=== PATIENT | male | born 1945 | race Caucasian/White ===

== ENCOUNTER 2019-08-29 18:20 | Inpatient (IN) | payer OTHER ==
[~2019-08-29] VITALS: Ht 180.3 cm; Wt 73.0 kg
[2019-08-29 18:32] VITALS: BP 125/74
--- NOTE | 2019-08-29 18:35 | NUR ---
PT NON-VERBAL UPON PLACEMENT TO BED 10
--- NOTE | 2019-08-29 18:36 | NUR ---
DNR WITH COMFORT CARE TREATMENT
--- NOTE | 2019-08-29 18:40 | NUR ---
PT ON NON-REBREATHER 15 L AT 100%
--- NOTE | 2019-08-29 18:43 | NUR ---
TABITHA FROM [facility] DUE TO ABNORMAL LABS, ELEVATED WBC AND UTI IN U/A. PER EMS, PT IS USUALLY VERBAL WITH FULL SENTENCES. PT MUMBLING AT THIS TIME. RR LABORED WITH INCREASED EFFORT. LUNGS DIMINISHED BILATERALLY. RR 33. PUPILS PERRL. PT NOW RESPONDING TO NAME AND MOVES EYES TO VERBAL COMMAND. EXTREMETIES WEAK. HR 100. PMH- AFIB, GERD, HENSLEY CATH, PVD, HTN
--- NOTE | 2019-08-29 18:48 | NUR ---
PER DR HERNANDEZ, REMOVE OXYGEN FOR ARTERIAL BLOOD GASES
--- NOTE | 2019-08-29 18:54 | NUR ---
URINE COLLECTED FROM PTS HENSLEY. COLORED DARK BROWN
--- NOTE | 2019-08-29 18:57 | NUR ---
XRAY AT BEDSIDE
--- NOTE | 2019-08-29 19:00 | NUR ---
LAB AT BEDSIDE
--- NOTE | 2019-08-29 19:14 | NUR ---
REPORT GIVEN TO PATRICIO KHAN. PENDING EKG AT THIS TIME. DR RODRIGEZ AT BEDSIDE. FAMILY AT BEDSIDE.
[2019-08-29 19:21] LABS: BASOPHILS # (AUTO) 0.2 K/uL (0.00-0.22); BASOPHILS % (AUTO) 1.2 % (0.0-2.0); EOSINOPHILS # (AUTO) 0.1 K/uL (0-0.4); EOSINOPHILS % (AUTO) 0.5 % (0.0-4.0); HEMATOCRIT 42.4 % (36-52); HEMOGLOBIN 13.7 g/dL (12.0-18.0); LYMPHOCYTES # (AUTO) 0.3 K/uL (2.0-11.5); LYMPHOCYTES % (AUTO) 1.9 % (20.5-51.1); MEAN CORPUSCULAR HEMOGLOBIN 30 pg (27-31); MEAN CORPUSCULAR HGB CONC 32 g/dL (33-37); MEAN CORPUSCULAR VOLUME 92.9 fL (80-94); MONOCYTES # (AUTO) 0.6 K/uL (0.8-1.0); MONOCYTES % (AUTO) 3.5 % (1.7-9.3); NEUTROPHILS # (AUTO) 14.9 K/uL (1.8-7.7); NEUTROPHILS % (AUTO) 92.9 % (42.2-75.2); PLATELET COUNT (AUTO) 226 K/uL (140-450); RED BLOOD CELL COUNT(AUTO) 4.56 MIL/uL (4.20-6.10); RED CELL DISTRIBUTION WIDTH 15.6 % (11.6-13.7); WHITE BLOOD COUNT (AUTO) 16.1 K/uL (4.8-10.8)
[2019-08-29] MEDS ORDERED: PIPERACILLIN/TAZOBACTAM 3.375 GM in DEXTROSE 5% 50 ML IV ONE (19:25)
[2019-08-29] MEDS ORDERED: NACL 0.9% 1,000 ML IV ONE (19:25)
[2019-08-29 19:38] LABS: BILIRUBIN,URINE 1+ (NEGATIVE); BLOOD, URINE 3+ (NEGATIVE); LEUKOCYTE ESTERASE ,URINE TRACE (NEGATIVE); NITRITE, URINE POSITIVE (NEGATIVE); PH,URINE 6.5 (5.0-9.0); UGLUCOSE NEGATIVE (NEGATIVE)
[2019-08-29] MEDS ORDERED: PIPERACILLIN/TAZOBACTAM 3.375 GM VIAL IV ONE (19:40)
[2019-08-29 19:53] LABS: PROTHROMBIN TIME 11.6 secs (10.8-13.4)
[2019-08-29 19:55] LABS: APPEARANCE,URINE BLOODY (CLEAR); COLOR,URINE BROWN (YELLOW)
[2019-08-29 19:58] LABS: ALBUMIN 2.8 g/dL (3.4-5.0); ANION GAP 13.8 (8-16); ASPARTATE AMINOTRANSFERASE 55 U/L (15-37); CARBON DIOXIDE 29.3 mmol/L (21-32); CHLORIDE 103 mmol/L (98-107); CREATININE 1.1 mg/dL (0.7-1.3); GLUCOSE 125 mg/dL (74-106); POTASSIUM 4.1 mmol/L (3.5-5.1); SODIUM SERUM 142 mmol/L (136-145); UREA NITROGEN, BLOOD 19 mg/dL (7-18)
[2019-08-29 20:00] LABS: RBC,URINE TOO NUMEROUS TO COUN /HPF (0-5); WBC,URINE 0-5 /HPF (0-5)
[2019-08-29] MEDS: DEXT 5% / NACL 0.45% 1,000 ML IV SCH ×2 (21:40→23:40)
[2019-08-29] MEDS ORDERED: METO100T23 PO (21:41)
[2019-08-29] MEDS ORDERED: OMEP20TC12 PO (21:42)
[2019-08-29] MEDS ORDERED: ONDANSETRON 4 MG/2 ML VIAL IVP PRN (21:50)
[2019-08-29] MEDS ORDERED: ACETAMINOPHEN 325 MG TAB PO PRN (21:50)
[2019-08-29] MEDS ORDERED: HYDROcodone/APAP 7.5/325 MG 1 TAB PO PRN (21:50)
[2019-08-29] MEDS ORDERED: UMEC1POW IH (21:56)
[2019-08-29] MEDS ORDERED: FINA5TAB1 PO (21:56)
[2019-08-29] MEDS ORDERED: DIGO0.122 PO (21:57)
[2019-08-29] MEDS ORDERED: TRAZ-343 PO (21:58)
[2019-08-29] MEDS ORDERED: FOLI1TAB90 PO (21:58)
[2019-08-29] MEDS ORDERED: TAMS0.4C97 PO (21:59)
--- NOTE | 2019-08-29 22:31 | NUR ---
EMPTIED HENSLEY CATH, 350 ML DARK HEMATURIA COLLECTED.
--- NOTE | 2019-08-29 22:40 | NUR ---
RECEIVED REPORT FROM ED RN PATRICIO FOR PT'S CONTINUITY OF CARE. PT AAOX2, FAMILY MEMBERS AT BEDSIDE, IS ON 2L O2 VIA NC, ON CERTIFIED DRUG COUNSELOR, HAS LEFT FA 20G SALINE LOCK, DENIES ANY PAIN AT THIS TIME. PT MADE COMFORTABLE, EXPLAINED TO PT AND FAMILY MEMBERS THE EXTRUSION PRESS ADJUSTER ROUTINE AND THE PLAN OF CARE, THEY VERBALIZED UNDERSTANDING. SAFETY AND ASPIRATION PRECAUTIONS IN PLACE. WILL MONITOR PT THROUGHOUT SHIFT.
--- NOTE | 2019-08-29 22:40 | NUR ---
PT ADMITTED TO [facility] RM 107A. TRANSFERRED VIA [facility] STABLE CONDITION. REPORT GIVEN TO DARBY KHAN. TRANSFER OF CARE AT THIS TIME.
[2019-08-29 22:43] LABS: MAGNESIUM 1.4 mg/dL (1.8-2.4); PHOSPHORUS 3.7 mg/dL (2.5-4.9); THYROID STIMULATING HORMONE 2.63 uIU/mL (0.34-3.74)
[2019-08-29 23:15] VITALS: BP 103/65
--- NOTE | 2019-08-29 23:40 | NUR ---
ADMINISTERED SCHEDULED IVF ORDERED. ANSWERED FAMILY MEMBERS QUESTIONS. WILL CONTINUE TO MONITOR PT.
[2019-08-30] VITALS: BP 129/66
[2019-08-30] MEDS ORDERED: PIPERACILLIN/TAZOBACTAM 3.375 GM VIAL IV ONE ×2 (00:27→05:52)
--- NOTE | 2019-08-30 00:30 | NUR ---
PT CHANGED AND MADE COMFORTABLE. ADMINISTERED SCHEDULED IV ABX ORDERED. PT DENIES ANY PAIN. WILL CONTINUE TO MONITOR PT.
[2019-08-30] MEDS ORDERED: PIPERACILLIN/TAZOBACTAM 3.375 GM in DEXTROSE 5% 50 ML IV SCH (01:00)
--- NOTE | 2019-08-30 01:30 | NUR ---
EXISTING SHELLIE KOO DC'D. PT C/O PAIN. PT CALLED TO INQUIRE ABOUT PT. INFORMATION GIVEN TO . NOTIFIED MD OF PAIN, WILL ORDER IVP PAIN MEDICATION.
[2019-08-30] MEDS: MORPHINE SULFATE 2 MG/ML SYR IVP PRN (01:44)
--- NOTE | 2019-08-30 01:46 | NUR ---
ADMINISTERED IVP PAIN MEDICATION ORDERED. UPON REMOVING HENSLEY CATH, PT C/O SEVERE PAIN. INFORMED MD AND MD ORDERED IVP PAIN MEDICATION. WILL REINSERT NEW HENSLEY CATHETER.
--- NOTE | 2019-08-30 02:30 | NUR ---
INSERTED NEW HENSLEY CATHETER, PT TOLERATED IT FAIRLY. MADE PT COMFORTABLE. WILL CONTINUE TO MONITOR PT.
[2019-08-30] MEDS ORDERED: ALBUTEROL SULFATE/IPRATROPIU 3 ML SOL IH PRN (03:15)
[2019-08-30] MEDS ORDERED: APIX5TAB PO (03:21)
[2019-08-30 04:00] VITALS: BP 129/66
[2019-08-30] MEDS ORDERED: MAG SULF 2000 MG/WATER PREMIX 50 ML IV SCH (05:00)
--- NOTE | 2019-08-30 05:00 | NUR ---
VS CHECKED AND CHARTED. ADMINISTERED SCHEDULED IV MAGNESIUM ORDERED. PT ASLEEP WITH NO SIGNS OF DISTRESS. PT CONTINUES TO SAT AT 96% WITH 2 L O2 VIA NC.
[2019-08-30] MEDS: PANTOPRAZOLE 40 MG TABEC PO SCH (05:57)
--- NOTE | 2019-08-30 06:20 | NUR ---
NEW IV INSERT PER RADIOLOGY'S PREFERENCE FOR PT'S CT SCAN WITH CONTRAST. CONSENT PRINTED AND WILL ENDORSE TO AM SHIFT RN THAT WILL BE THE TECHNICAL ADMINISTRATOR TO SIGN FOR CT WITH CONTRAST CONSENT SINCE PT IS ALOC. PT DENIES ANY PAIN AT THIS TIME. ADMINISTERED SCHEDULED IV ABX ORDERED. URINE CLEAR AND YELLOW IN COLOR COMPARE TO LAST NIGHT'S OUTPUT. WILL ENDORSE TO AM SHIFT RN FOR PT'S CONTINUITY OF CARE.
[2019-08-30] MEDS: PIPERACILLIN/TAZOBACTAM 3.375 GM in DEXTROSE 5% 50 ML IV SCH ×3 (06:27→18:18)
[2019-08-30 06:28] LABS: BASOPHILS % (AUTO) 0.4 % (0.0-2.0); EOSINOPHILS # (AUTO) 0.3 K/uL (0-0.4); EOSINOPHILS % (AUTO) 2.7 % (0.0-4.0); HEMATOCRIT 37.8 % (36-52); HEMOGLOBIN 12.3 g/dL (12.0-18.0); LYMPHOCYTES # (AUTO) 0.7 K/uL (2.0-11.5); MEAN CORPUSCULAR HEMOGLOBIN 30 pg (27-31); MEAN CORPUSCULAR HGB CONC 33 g/dL (33-37); MEAN CORPUSCULAR VOLUME 92.9 fL (80-94); MONOCYTES # (AUTO) 0.7 K/uL (0.8-1.0); NEUTROPHILS % (AUTO) 82.9 % (42.2-75.2); PLATELET COUNT (AUTO) 185 K/uL (140-450); RED BLOOD CELL COUNT(AUTO) 4.07 MIL/uL (4.20-6.10); RED CELL DISTRIBUTION WIDTH 15.3 % (11.6-13.7); WHITE BLOOD COUNT (AUTO) 9.6 K/uL (4.8-10.8)
[2019-08-30 07:10] LABS: CARBON DIOXIDE 33.2 mmol/L (21-32); CHLORIDE 105 mmol/L (98-107); GLUCOSE 108 mg/dL (74-106); POTASSIUM 3.2 mmol/L (3.5-5.1); SODIUM SERUM 142 mmol/L (136-145); UREA NITROGEN, BLOOD 17 mg/dL (7-18)
--- NOTE | 2019-08-30 07:10 | NUR ---
RECEIVED REPORT FROM NIGHT NURSE, PT IS STABLE IN BED, ON 2L NC O2, PT IS RESTING IN BED, SAFETY MEASURES IN PLACE, CALL LIGHT WITHIN REACH,
[2019-08-30 07:15] LABS: MAGNESIUM 1.2 mg/dL (1.8-2.4)
[2019-08-30 07:17] LABS: CHOL/HDL RATIO 2.7 (1-4.5)
[2019-08-30] MEDS: DEXT 5% / NACL 0.45% 1,000 ML IV SCH ×2 (07:49→17:49)
[2019-08-30 08:00] VITALS: BP 108/69
[2019-08-30] MEDS ORDERED: APIXABAN 2.5 MG TAB PO SCH ×2 (09:00→21:00)
[2019-08-30] MEDS: ALBUTEROL SULFATE/IPRATROPIU 3 ML SOL IH SCH ×3 (09:00→19:31)
--- NOTE | 2019-08-30 09:10 | NUR ---
PATIENT IS SCREENED AND CATEGORIZED HIGH NUTRITION RISK. PATIENT WILL BE SEEN WITHIN 1-2 DAY OF ADMISSION. 08/30/2019-08/31/[address]
[2019-08-30] MEDS ORDERED: METOPROLOL 25 MG TAB PO SCH (09:36)
[2019-08-30] MEDS: DOCUSATE SODIUM 100 MG GELCAP PO SCH ×2 (09:47→21:00)
[2019-08-30] MEDS: TAMSULOSIN 0.4 MG CAP PO SCH (09:49)
[2019-08-30] MEDS: FINASTERIDE 5 MG TAB PO SCH (09:50)
[2019-08-30] MEDS: FAMOTIDINE 20 MG TAB PO SCH (09:50)
[2019-08-30] MEDS: DIGOXIN 0.125 MG TAB PO SCH (09:50)
--- NOTE | 2019-08-30 11:17 | NUR ---
GAVE PT ZOFRAN FOR NAUSEA. RT REPORTED PT VOMITED DUE TO HIS COUGHING. GAVE PT EDUCATION, PT TOLERATED MEDICATION WELL, PT IS STILL COUGHING, AT BEDSIDE. CALL LIGHT WITHIN REACH.
[2019-08-30 12:00] VITALS: BP 107/70
[2019-08-30] MEDS: KCL 20 MEQ/WATER INJ PREMIX 200 ML IV SCH ×2 (15:30→17:35)
--- NOTE | 2019-08-30 15:50 | NUR ---
PT BEDSIDE SWALLOW EVALUATION DONE, PT CAN TOLERATE PUREED DIET AND THICKEN LIQUIDS
[2019-08-30 16:00] VITALS: BP 86/59
--- NOTE | 2019-08-30 16:10 | NUR ---
GAVE DR FIGUEROA REPORT PT BP 86/59, RECEIVED ORDERED AND WILL CARRY THEM OUT.
[2019-08-30] MEDS ORDERED: NACL 0.9% 1,000 ML IV SCH (16:30)
--- NOTE | 2019-08-30 16:30 | NUR ---
GAVE PT A BOLUS OF NORMAL SALINE, PER MD ORDER,
--- NOTE | 2019-08-30 17:30 | NUR ---
AFTER BOLUS, PT BP 133/75, HR 89, PT IS STABLE, FAMILY AT BEDSIDE.
[2019-08-30] MEDS: MAG SULF 2000 MG/WATER PREMIX 100 ML IV SCH ×2 (18:19→21:00)
--- NOTE | 2019-08-30 19:10 | NUR ---
GAVE REPORT TO NIGHT NURSE FOR CONTINUITY OF CARE, PT IS STABLE.
[2019-08-30] MEDS: BUDESONIDE 0.5 MG/2 ML NEBU INH SCH (19:32)
--- NOTE | 2019-08-30 19:50 | NUR ---
RECEIVED PT ON 2L NC WITH AN SP02 OF 95% AND RALES BREATH SOUNDS. NO RESPIRATORY DISTRESS NOTED AT THIS TIME; HR 91 AND RR 20. HHN TX GIVEN ORDERED WITH NO ADVERSE REACTION. FAMILY MEMBERS AT BEDSIDE DURING TX. WILL CONTINUE TO MONITOR PT.
[2019-08-30 20:00] VITALS: BP 114/60
[2019-08-30] MEDS: METOPROLOL 25 MG TAB PO SCH (21:00)
[2019-08-30] MEDS: APIXABAN 2.5 MG TAB PO SCH (21:00)
[2019-08-30] MEDS ORDERED: traZODone 50 MG TAB PO SCH (21:00)
--- NOTE | 2019-08-30 21:00 | NUR ---
PERFORMED SWALLOW TEST, PT UNABLE TO SWALLOW. MEDICATIONS NOT GIVEN, MD AWARE.
--- NOTE | 2019-08-30 21:00 | NUR ---
Texted Favian RN PICC for PICC insertion nolan ; waited for Favian to text back
[2019-08-30] MEDS ORDERED: CRUSHER, PILL MC ONE (21:41)
--- NOTE | 2019-08-30 23:15 | NUR ---
PT LYING DOWN SHAKING, ASKED PT IF HE IS OK AND WHY HE IS SHAKING, PRE PT, "HE SOMETIMES GET LIKE THIS". DENIES PAIN OR DISCOMFORT OTHERWISE. MADE PT COMFORTABLE. WILL CONTINUE TO MONITOR PT.
[2019-08-31] VITALS: BP 121/73
[2019-08-31] MEDS: PIPERACILLIN/TAZOBACTAM 3.375 GM in DEXTROSE 5% 50 ML IV SCH ×4 (00:16→18:03)
--- NOTE | 2019-08-31 00:16 | NUR ---
ADMINISTERED SCHEDULED IV ABX ORDERED. PT ASLEEP, SHAKING A LITTLE BIT, COVERED UP WITH BLANKET AND REMINDED TO RELAX AND TAKE DEEP BREATHS. SHAKING STOPPED AND MADE PT COMFORTABLE. WILL CONTINUE TO MONITOR PT.
[2019-08-31] MEDS: DEXT 5% / NACL 0.45% 1,000 ML IV SCH ×2 (00:25→11:26)
--- NOTE | 2019-08-31 02:00 | NUR ---
PT LYING DOWN ASLEEP WITH NO SIGNS OF DISTRESS. PICC LINE RN PARVIN CALLED TO VERIFY ORDER FOR PICC LINE, WILL DO THE PROCEDURE IN THE A.M. INFORMED RADIOLOGY AND ANVIL WORKER AWARE.
[2019-08-31 04:00] VITALS: BP 136/96
--- NOTE | 2019-08-31 05:01 | NUR ---
Called [facility] , lm
--- NOTE | 2019-08-31 05:25 | NUR ---
ADMINISTERED SCHEDULED IV ABX ORDERED. PT SHAKING HIS LEGS, HR GOING UP. REASSESSED PT, PT DENIED ANY PAIN BY SHAKING HIS HEAD. MADE PT COMFORTABLE, REORIENTED PT TO HOSPITAL ENVIRONMENT. WILL CONTINUE TO MONITOR PT.
[2019-08-31] MEDS: PANTOPRAZOLE 40 MG TABEC PO SCH (05:34)
[2019-08-31 05:45] LABS: BASOPHILS % (AUTO) 0.3 % (0.0-2.0); EOSINOPHILS # (AUTO) 0.2 K/uL (0-0.4); EOSINOPHILS % (AUTO) 1.9 % (0.0-4.0); HEMATOCRIT 35.5 % (36-52); HEMOGLOBIN 11.5 g/dL (12.0-18.0); LYMPHOCYTES # (AUTO) 0.4 K/uL (2.0-11.5); LYMPHOCYTES % (AUTO) 3.8 % (20.5-51.1); MEAN CORPUSCULAR HEMOGLOBIN 30 pg (27-31); MEAN CORPUSCULAR HGB CONC 32 g/dL (33-37); MEAN CORPUSCULAR VOLUME 92.9 fL (80-94); MONOCYTES # (AUTO) 0.7 K/uL (0.8-1.0); MONOCYTES % (AUTO) 6.7 % (1.7-9.3); NEUTROPHILS # (AUTO) 8.6 K/uL (1.8-7.7); NEUTROPHILS % (AUTO) 87.3 % (42.2-75.2); PLATELET COUNT (AUTO) 181 K/uL (140-450); RED BLOOD CELL COUNT(AUTO) 3.82 MIL/uL (4.20-6.10); RED CELL DISTRIBUTION WIDTH 15.3 % (11.6-13.7); WHITE BLOOD COUNT (AUTO) 9.9 K/uL (4.8-10.8)
[2019-08-31 06:04] LABS: ANION GAP 6.9 (8-16); CARBON DIOXIDE 32.7 mmol/L (21-32); CHLORIDE 100 mmol/L (98-107); CREATININE 0.8 mg/dL (0.7-1.3); GLUCOSE 145 mg/dL (74-106); POTASSIUM 3.6 mmol/L (3.5-5.1); SODIUM SERUM 136 mmol/L (136-145); UREA NITROGEN, BLOOD 9 mg/dL (7-18)
[2019-08-31 06:11] LABS: MAGNESIUM 1.8 mg/dL (1.8-2.4); PHOSPHORUS 2.7 mg/dL (2.5-4.9)
--- NOTE | 2019-08-31 06:30 | NUR ---
PT GRUNTING, MADE PT COMFORTABLE. REORIENTED TO HOSPITAL ENVIRONMENT, PT NODDED. PT STABLE AND COMFORTABLE. WILL ENDORSE PT TO AM SHIFT RN.
--- NOTE | 2019-08-31 07:05 | NUR ---
RECEIVED REPORT FROM NIGHT NURSE, PT IS LAYING IN BED, INTERMITTENT COUGHING, PT HAS LEFT FOREARM 20G, RAC 20G RUNNING D51/2NS AT 100 ML/H. PT ON 2L NASAL CANNULA, SAFETY MEASURES IN PLACE
[2019-08-31] MEDS: BUDESONIDE 0.5 MG/2 ML NEBU INH SCH ×2 (07:06→19:30)
[2019-08-31] MEDS: ALBUTEROL SULFATE/IPRATROPIU 3 ML SOL IH SCH ×3 (07:06→19:30)
[2019-08-31 08:00] VITALS: BP 139/72
[2019-08-31] MEDS: DOCUSATE SODIUM 100 MG GELCAP PO SCH ×2 (09:00→21:00)
[2019-08-31] MEDS: FAMOTIDINE 20 MG TAB PO SCH (09:00)
[2019-08-31] MEDS: TAMSULOSIN 0.4 MG CAP PO SCH (09:00)
[2019-08-31] MEDS: METOPROLOL 25 MG TAB PO SCH (09:00)
[2019-08-31] MEDS: FINASTERIDE 5 MG TAB PO SCH (09:00)
[2019-08-31] MEDS: APIXABAN 2.5 MG TAB PO SCH ×2 (09:00→21:00)
[2019-08-31] MEDS: DIGOXIN 0.125 MG TAB PO SCH (09:00)
--- NOTE | 2019-08-31 09:53 | NUR ---
(08/31/19) RD INITIAL ASSESSMENT COMPLETED PLEASE REFER TO NUTRITION ASSESSMENT UNDER CARE ACTIVITY FOR ESTIMATED NUTRITIONAL NEEDS. RD RECOMMENDATIONS: 1. CONTINUE ON PUREE/NECTAR-THICK LIQUIDS TOLERATED. 2. IF PO INTAKES < 50%, CONSIDER ADDING ENSURE ENLIVE 1 CARTON WITH MEALS TID TO PROVIDE ADDITIONAL 1050 KCAL AND [address] WILL F/U 3-5 DAYS; MODERATE RISK. GABINO RUIZ MS, RDN
--- NOTE | 2019-08-31 10:08 | NUR ---
PT TOO LETHARGIC TO SWALLOW MEDICATION, DR FIGUEROA IS AWARE.
[2019-08-31] MEDS: MORPHINE SULFATE 2 MG/ML SYR IVP PRN ×2 (10:57→16:07)
--- NOTE | 2019-08-31 10:57 | NUR ---
GAVE PT MORPHINE FOR FLACC 5, PT IS RESTLESS, INDICATES HE IS IN PAIN BUT UNABLE TO VERBALIZE NUMBER. REMOVED RIGHT AC IV, IV INTACT, REMOVED LEFT HAND IV, IV INTACT. FAMILY AT BEDSIDE.
[2019-08-31 12:00] VITALS: BP 147/80
--- NOTE | 2019-08-31 12:00 | NUR ---
NOTIFY DR FIGUEROA, PT HEART RATE IS 156 ON TELEMONITOR, BP 147/80. RECEIVED ORDERS AND WILL CARRY THEM OUT
[2019-08-31] MEDS ORDERED: LORazepam 2 MG/ML VIAL IVP PRN (13:10)
[2019-08-31] MEDS ORDERED: SCOPOLAMINE 1.5 MG/72 HR PATCH TD SCH (13:10)
[2019-08-31] MEDS: METOPROLOL 5 MG/5 ML VIAL IV SCH ×3 (13:14→21:00)
--- NOTE | 2019-08-31 13:21 | NUR ---
GAVE ORDERED METOPROLOL IV PUSH, PER MD ORDERED, EDUCATION GIVEN, FAMILY AT BESIDE.
--- NOTE | 2019-08-31 15:05 | NUR ---
PT IN BED ON 2L NC, FAMILY AT BEDSIDE,
[2019-08-31 16:00] VITALS: BP 140/83
--- NOTE | 2019-08-31 16:11 | NUR ---
GAVE PT MORPHINE FOR FLACC 5, PT TOLERATED WELL, FAMILY AT BEDSIDE.
--- NOTE | 2019-08-31 16:11 | NUR ---
DISCHARGE PLANNING: A 73 YEAR OLD MALE FROM [facility], WHO CAME IN DUE TO ALTERED, WEAK AND GETTING WORSE. PAST MEDICAL HISTORY INCLUDE METASTATIC LUNG CA, OBSTRUCTIVE NEUROPATHY, BPH, PAD, A FIB. INITIAL DIAGNOSIS OF PNA AND URINARY TRACT INFECTION. CURRENT LABS INCLUDE WBC 9.9, H/H 11.5/35.5. 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 PULMO CONSULT WITH DR. KITCHEN FOR METASTATIC LUNG CA. DC PLAN IS TO GO BACK TO [facility] ONCE STABLE. Addendum: 09/01/19 at 1415 by Lisa Kessler DC PLANNING: SEEN BY PULMO DR RONAN FREEMAN, HOSPICE EVALUATION CONTINUE IV ABX AND BREATHING TREATMENT. CONTACTED [facility] WILL SEND SOMEONE TO TALK TO PATIENT AND FAMILY MEMBER.
--- NOTE | 2019-08-31 19:20 | NUR ---
GAVE REPORT TO NIGHT NURSE FOR CONTINUITY OF CARE, PT HAS LABORED BREATHING, MD AWARE, CALLED RT FOR BREATHING TREATMENT AND SUCTIONING, FAMILY AT BEDSIDE.
--- NOTE | 2019-08-31 19:22 | NUR ---
RECEIVED PT ON BED, SLEEPING, UNAROUSABLE AT THIS TIME, FLACC-0, NO SIGNS OF PAIN, LABORED BREATHING AND TACHYPNEIC, SAT-93% ON O2 2L NC, RT COMING TO GIVE BREATHING TX, IVF INFUSING WELL VIA RT UA PICC LINE, FAMILY MEMBERS AT BEDSIDE, PER JAVED PT HAS BEEN DIFFICULT TO AROUSE SINCE THIS AFTERNOON, HENSLEY CATHETER TO GRAVITY DRAINING YELLOW URINE, PLAN OF CARE DISCUSSED WITH FAMILY, DNR STATUS, SAFETY MEASURES IN PLACE, WILL CLOSELY MONITOR PT.
[2019-08-31 20:00] VITALS: BP 152/84
--- NOTE | 2019-08-31 21:23 | NUR ---
PT NON-RESPONSIVE, NO RESPONSE FROM PAINFUL STIMULI, VITAL SIGNS TAKEN:BP-121/66, HR-117, RR-36, SAT-93%, TEMP-97.4, FLACC-0, PT APPEARS COMFORTABLE, UNABLE TO GIVE DUE PO MEDS, DR SMITH MADE AWARE OF PT'S CONDITION, DR SMITH CALLED PT'S JAVED AND UPDATED ON PT'S CONDITION, DISCUSS TREATMENT PLAN, DR STATED TO CONTINUE MONITORING PT AND KEEP PT COMFORTABLE AND NOTIFY IF THERE IS CHANGE ON PT'S CONDITION.
--- NOTE | 2019-08-31 23:30 | NUR ---
PT STILL NON-RESPONSIVE, VITAL SIGNS TAKEN, CONTROLLED A-FIB WITH 111 BPM, SAT-96% ON O2 2L NC, TACHYPNEIC WITH RR-32, FLACC-0, IVF INFUSING WELL, NO SIGNS OF DISTRESS, CONTINUE TO MONITOR CLOSELY.
[2019-09-01] VITALS: BP 129/67
--- NOTE | 2019-09-01 00:20 | NUR ---
PT'S JAVED CALLED AND UPDATED ON PT'S CONDITION, STATED THEY WILL DISCUSS AND DECIDE IN THE MORNING REGARDING HOSPICE CARE FOR PT, WILL ENDORSE.
[2019-09-01] MEDS: PIPERACILLIN/TAZOBACTAM 3.375 GM in DEXTROSE 5% 50 ML IV SCH ×4 (00:30→18:08)
--- NOTE | 2019-09-01 01:40 | NUR ---
NOTICED PT HAD OCCASIONAL SILVER LEG TREMBLING, LAST FOR SEVERAL SECONDS, PT STILL NON-RESPONSIVE TO CHEST RUB AND PAIN, MONITORED CLOSELY.
[2019-09-01 04:00] VITALS: BP 129/66
[2019-09-01] MEDS: DEXT 5% / NACL 0.45% 1,000 ML IV SCH ×2 (04:55→22:51)
--- NOTE | 2019-09-01 05:48 | NUR ---
PT UNABLE TO TAKE DUE ORAL MEDICATION, PT STILL NON-RESPONSIVE, IVF D5 1/2 NS @70ML/H INFUSING WELL, MONITORED CLOSELY.
[2019-09-01] MEDS: PANTOPRAZOLE 40 MG TABEC PO SCH (05:50)
[2019-09-01 06:15] LABS: BASOPHILS % (AUTO) 0.2 % (0.0-2.0); EOSINOPHILS # (AUTO) 0.2 K/uL (0-0.4); EOSINOPHILS % (AUTO) 1.5 % (0.0-4.0); HEMATOCRIT 34.3 % (36-52); HEMOGLOBIN 11.1 g/dL (12.0-18.0); LYMPHOCYTES # (AUTO) 0.4 K/uL (2.0-11.5); LYMPHOCYTES % (AUTO) 3.6 % (20.5-51.1); MEAN CORPUSCULAR HEMOGLOBIN 30 pg (27-31); MEAN CORPUSCULAR HGB CONC 32 g/dL (33-37); MEAN CORPUSCULAR VOLUME 91.8 fL (80-94); MONOCYTES % (AUTO) 8.6 % (1.7-9.3); NEUTROPHILS # (AUTO) 9.9 K/uL (1.8-7.7); NEUTROPHILS % (AUTO) 86.1 % (42.2-75.2); PLATELET COUNT (AUTO) 190 K/uL (140-450); RED BLOOD CELL COUNT(AUTO) 3.74 MIL/uL (4.20-6.10); RED CELL DISTRIBUTION WIDTH 14.8 % (11.6-13.7); WHITE BLOOD COUNT (AUTO) 11.5 K/uL (4.8-10.8)
[2019-09-01 06:39] LABS: ANION GAP 4.1 (8-16); CARBON DIOXIDE 34.8 mmol/L (21-32); CHLORIDE 96 mmol/L (98-107); CREATININE 0.8 mg/dL (0.7-1.3); GLUCOSE 118 mg/dL (74-106); POTASSIUM 3.9 mmol/L (3.5-5.1); SODIUM SERUM 131 mmol/L (136-145); UREA NITROGEN, BLOOD 7 mg/dL (7-18)
[2019-09-01 06:49] LABS: MAGNESIUM 1.3 mg/dL (1.8-2.4); PHOSPHORUS 2.9 mg/dL (2.5-4.9)
--- NOTE | 2019-09-01 07:24 | NUR ---
PT STILL NON-RESPONSIVE, BEDSIDE REPORT GIVEN TO RN JANNETTE FOR CONTINUITY OF CARE.
--- NOTE | 2019-09-01 07:25 | NUR ---
RECEIVED BEDSIDE REPORT FROM MECHANIST NURSE FOR CONTINUITY OF CARE. PT IS RESTING ON BED AND UNAROUSABLE AT THIS TIME. PT IS AAOX 0 AND NOT RESPOND TO VOICE. RESPIRATION EVEN AND LABORED ON 2LMP VIA NC, SPO2 AT 93%. FLACC 0. NO SIGNS OF DISTRESS NOTED. R UPPER ARM PICC IN PLACE, CLEAN AND INTACT, INFUSING PER MD ORDER. SKIN CLEAN AND DRY. PT IS INCONTINENT AND HENSLEY IN PLACE DRAINING YELLOW URINE WITH GRAVITY. TELE MONITOR ATTACHED. SAFETY MEASURES IN PLACE. BED IN LOW POSITION AND CALL LIGHT WITHIN REACH. FALL RISK PROTOCOL IN PLACE AND BED ALARM ACTIVATED.
[2019-09-01] MEDS: ALBUTEROL SULFATE/IPRATROPIU 3 ML SOL IH SCH ×3 (07:34→18:59)
[2019-09-01] MEDS: BUDESONIDE 0.5 MG/2 ML NEBU INH SCH ×2 (07:35→18:59)
[2019-09-01 08:00] VITALS: BP 145/67
[2019-09-01] MEDS: DOCUSATE SODIUM 100 MG GELCAP PO SCH ×2 (09:00→21:00)
[2019-09-01] MEDS: TAMSULOSIN 0.4 MG CAP PO SCH (09:00)
[2019-09-01] MEDS: FINASTERIDE 5 MG TAB PO SCH (09:00)
[2019-09-01] MEDS: DIGOXIN 0.125 MG TAB PO SCH (09:00)
[2019-09-01] MEDS: FAMOTIDINE 20 MG TAB PO SCH (09:00)
[2019-09-01] MEDS: APIXABAN 2.5 MG TAB PO SCH ×2 (09:00→21:00)
[2019-09-01] MEDS: METOPROLOL 5 MG/5 ML VIAL IV SCH ×4 (09:54→21:00)
--- NOTE | 2019-09-01 09:54 | NUR ---
CHECKED BLOOD PRESSURE PIROR TO MED ADMINISTRATION, BP 124/69 PULSE 121, SPO2 95% ON 2LPM VIA NC. UNABLE TO ADMINISTER PO MEDS DUE TO PT IS NOT AROUSABLE AND NON-RESPONSIVE AND FOR ASPIRATION PRECAUTION, NOTIFIED DR FIGUEROA AND DR WAS AWARE AND SAID "GIVE HIM HIS METOPROLOL." ADMINISTERED METOPROLOL VIA IVP, PT TOLERATED WELL, MED ED PROVIDED TO PT AND SISTER BY BEDSIDE. FLACC 0. NO SIGNS OF DISTRESS NOTED. TELE MONITOR ATTACHED. SAFETY MEASURES IN PLACE. BED IN LOW POSITION AND CALL LIGHT WITHIN REACH. FALL RISK PROTOCOL IN PLACE AND BED ALARM ACTIVATED.
--- NOTE | 2019-09-01 10:24 | NUR ---
DR FIGUEROA IS TALKING TO PT'S JAVED AND FAMILY AT BEDSIDE.
--- NOTE | 2019-09-01 11:01 | NUR ---
REASSESSED PT'S BP; 128/74 PULSE 100. SPO2 95% ON 2LPM VIA NC. FLACC 0. FAMILY BY BEDSIDE. NO SIGNS OF DISTRESS NOTED. TELE MONITOR ATTACHED. SAFETY MEASURES IN PLACE. BED IN LOW POSITION AND CALL LIGHT WITHIN REACH. FALL RISK PROTOCOL IN PLACE AND BED ALARM ACTIVATED.
--- NOTE | 2019-09-01 11:55 | NUR ---
ADMINISTERED ANTIBIOTIC VIA IVPB PER MD ORDER, MED ED PROVIDED TO PT AND AT BEDSIDE. PT TOLERATED WELL. RESPIRATION LABORED AND DEEP ON 2LPM VIA NC, SPO2 95%. FLACC 0. NO SIGNS OF DISTRESS NOTED. TELE MONITOR ATTACHED. SAFETY MEASURES IN PLACE. BED IN LOW POSITION AND CALL LIGHT WITHIN REACH. BED ALARM ACTIVATED.
[2019-09-01 12:00] VITALS: BP 128/82
--- NOTE | 2019-09-01 12:08 | NUR ---
ADMINISTERED ZOSYN VIA IVPB PER MD ORDER, MED ED PROVIDED TO PT AND PT VERBALIZED. CHECKED BLOOD GLUCOSE AND RECEIVED 73, NO COVERAGE NEEDED. PT AWAKE AND EATING VEGGIE CHIPS AT THIS TIME. NO SIGNS OF DISTRESS NOTED TELE MONITOR ATTACHED, SAFETY MEASURES IN PLACE. Addendum: 09/01/19 at 1212 by Dede Granados RN WRONG PT
[2019-09-01] MEDS: MAG SULF 2000 MG/WATER PREMIX 100 ML IV SCH ×2 (12:33→14:29)
[2019-09-01] MEDS: MORPHINE SULFATE 2 MG/ML SYR IVP PRN ×2 (12:36→16:34)
--- NOTE | 2019-09-01 12:36 | NUR ---
ADMINISTERED MAG PER MD ORDER FOR LOW MAG LAB 1.3. PT IS SHAKING HIS LEGS AND PULSE WENT UP TO 130, SAID" I THINK HE IS IN PAIN." ADMINISTERED PRN MORPHINE PER MD ORDER, MED ED PROVIDED TO AT BEDSIDE. PT'S PULSE WENT DOWN 109 AFTER MORPHINE. SPO2 AT 94% WITH 2LPM VIA NC. TELE MONITOR ATTACHED. SAFETY MEASURES IN PLACE.
--- NOTE | 2019-09-01 13:14 | NUR ---
CHECKED BLOOD PRESSURE PIROR TO MED ADMINISTRATION, BP 126/80 PULSE 125, SPO2 95% ON 2LPM VIA NC. ADMINISTERED METOPROLOL VIA IVP, PT TOLERATED WELL, MED ED PROVIDED TO PT AND BY BEDSIDE. FLACC 0. NO SIGNS OF DISTRESS NOTED. TELE MONITOR ATTACHED. SAFETY MEASURES IN PLACE. BED IN LOW POSITION AND CALL LIGHT WITHIN REACH. FALL RISK PROTOCOL IN PLACE AND BED ALARM ACTIVATED.
--- NOTE | 2019-09-01 13:55 | NUR ---
Locomotive Mechanic Note: Basic Screen: Yes High Risk DC Screen Yes Name: JAVED NOGUERA Home Relationship: Pre-Admission Living Arrangements: SNF Prior ADL Needs Assistance Current Home Health Name/Tel: N/A Current DME/02 Name/Tel: OXYGEN 1-2L, WHEELCHAIR, HOSPITAL BED Current Hospice Name/Tel: N/A Current Dialysis Name/Tel: N/A Healthcare Decision Maker: Next of Kin Other: - JAVED NOGUERA Advance Directive No Physician Orders for Life Sustaining Treatment Form No Patient/Family Have Educational Needs No Discipline: Case Mgt/Social Svcs Tentative Discharge Plan/Destination: SNF/ECF Will require assistance post discharge: No Referred to Horologist Apprentice: No Tentative Discharge Plan Summary: Patient is a 73-year-old male admitted for PNA and UTI. Patient has PMHX of Metastatic Lung Cancer, obsrtuctive uropathy, BPH, PAD, A-fib, COPD, HTN, GERD, depression, and constipation. Patient was admitted from [facility]. SW contacted Sharron from [facility] [phone]. Per Sharron, patient needs assistance with all ADLS except eating. Patient's tentative discharge plan is to return home. No further needs identified. Signature: SUSAN Noel Date: Sep 01, 2019 Time: 13:53
--- NOTE | 2019-09-01 14:00 | NUR ---
P.T. NOTES UNABLE TO INITIATE ANY P.T. EVAL WHEN ATTEMPTED 2X - ONE IN THE MORNING AND THEN IN THE AFTERNOON DUE TO PATIENT IS NOT ABLE TO BE AWAKE AT THIS TIME. FAMILIES AT HIS BEDSIDE BOTH MADE AWARE. PLAN: WE'LL TRY AGAIN TOMORROW. HIS NURSE JANNETTE WAS AWARE.
--- NOTE | 2019-09-01 14:22 | NUR ---
*S.T. Note* Order for S.T. bedside swallow eval received, chart reviewed, spoke w/ BILL Aguayo and pt seen at bedside w/ son present. Pt obtunded, unarousable for the greater portion of the day per staff and family reports. Per son, pt was given swallow screening by RN 2 days ago, in which pt coughed after swallow of applesauce and screening was thus discontinued and S.T. order for swallow eval was entered. This clinician spent time attempting to arouse pt from somnolence. Pt unresponsive to multiple stimuli--verbal, tactile and kinesthetic. Unable to complete eval at this time. Will reattempt tomorrow 09/02/19. D/w son at bedside reasons for deferring eval at this time. Also endorsed to BILL Aguayo. All questions answered. Time [id number]
--- NOTE | 2019-09-01 14:29 | NUR ---
STARTED 2ND BAG OF MAG PER MD ORDER, INFUSING PER MD ORDER. MED EDUCATION PROVIDED TO PT'S SON AND FAMILY AT BEDSIDE. NO SIGNS OF DISTRESS NOTED. TELE MONITOR ATTACHED. SAFETY MEASURES IN PLACE.
--- NOTE | 2019-09-01 15:23 | NUR ---
PT IS RESTING ON BED, NONRESPONSIVE TO VOICE. RESPIRATION DEEP AND LABORED ON 2LM VIA NC, SPO2 AT 94% AT THIS TIME. FLACC 0. NO SIGNS OF DISTRESS NOTED. FAMILY BY BEDSIDE. TELE MONITOR ATTACHED. SAFETY MEASURES IN PLACE. BED IN LOW POSITION AND CALL LIGHT WITHIN REACH. BED ALARM ACTIVATED.
[2019-09-01 16:00] VITALS: BP 121/95
--- NOTE | 2019-09-01 16:34 | NUR ---
PT IS SHAKING HIS LEGS AND PULSE WENT UP TO 135, ADMINISTERED PRN MORPHINE PER MD ORDER, MED ED PROVIDED TO AND SON AT BEDSIDE. PT'S PULSE WENT DOWN 111 AFTER MORPHINE. SPO2 AT 94% WITH 2LPM VIA NC. TELE MONITOR ATTACHED. SAFETY MEASURES IN PLACE. BED ALARM ACTIVATED.
--- NOTE | 2019-09-01 17:19 | NUR ---
CHECKED BLOOD PRESSURE PRIOR TO MED ADMINISTRATION, BP 134/77 PULSE 107, SPO2 96% ON 2LPM VIA NC. ADMINISTERED METOPROLOL VIA IVP, PT TOLERATED WELL, MED ED PROVIDED TO PT AND BY BEDSIDE. FLACC 0. NO SIGNS OF DISTRESS NOTED. TELE MONITOR ATTACHED. AND SON ARE TALKING TO [facility] AT BEDSIDE. SAFETY MEASURES IN PLACE. BED IN LOW POSITION AND CALL LIGHT WITHIN REACH. FALL RISK PROTOCOL IN PLACE AND BED ALARM ACTIVATED.
--- NOTE | 2019-09-01 18:08 | NUR ---
ADMINISTERED ZOSYN VIA IVPB PER MD ORDER. PT IS RESTING ON BED, SPO2 AT 97% ON 2LPM VIA NC. FLACC 0. NO SIGNS OF DISTRESS NOTED TELE MONITOR ATTACHED, SAFETY MEASURES IN PLACE, BED IN LOW POSITION AND CALL LIGHT WITHIN REACH. BED ALARM ACTIVATED.
--- NOTE | 2019-09-01 19:21 | NUR ---
RECEIVED PATIENT ON 2L NASAL CANNULA, PULSE OX SAT 94%. SCHEDULED BREATHING TREATMENTS ADMINISTERED. TOLERATED TXs WELL WITHOUT ADVERSE SIDE EFFECTS. NASOTRACHEALLY SUCTIONED PATIENT WITHOUT INCIDENT. SUCTIONED LARGE AMOUNT OF THICK, YELLOW SECRETIONS. ORAL CARE DONE. WILL CONTINUE TO MONITOR.
--- NOTE | 2019-09-01 19:25 | NUR ---
ENDORSED PATIENT AT BEDSIDE TO TRANSACTION COORDINATOR NURSE FOR CONTINUITY OF CARE. RT IS AT BEDSIDE AND PROVIDING BREATHING TREATMENT. NO SIGNS OF DISTRESS NOTED. TELE MONITOR ATTACHED. PT IS IN STABLE CONDITION. SAFETY MEASURES IN PLACE. BED ALARM ACTIVATED.
--- NOTE | 2019-09-01 19:30 | NUR ---
REPORT GIVEN AT BEDSIDE BY DAY SHIFT NURSE STATES HAD SMALL BM ON DAY SHIFT. STATES HIS ORDER IS FOR PUREE DIET BUT FAILED PT/SWALLOW EVAL. PATIENT AAOX0. LYING IN BED WITH EYES CLOSED ON 2 L OXYGEN VIA N/C. GRIMACES WHEN TOUCHED BUT NO EYE OPENING. RESP LABORED AND DEEP, TACHY. LUNG SOUNS CRACKLES. RT AT BEDSIDE. STATES HENSLEY INSERTED 08/29. CASTILLO PICC LINE . IVF D5 .45 NS AT 50ML/HR PER MD ORDERS. DAY SHIFT AND MD COLEMAN STATES HOLD PO MEDICATIONS. AWARE OF ELEVATED HR AND RR. STATES MAGNESIUM REPLACED ON DAY SHIFT. BOWEL SOUNDS ACTIVE IN ALL 4 QUADS. INTACT SKIN. NO DISTRESS NOTED AT THIS TIME. AFEBRILE. CALL LIGHT WITHIN REACH.
[2019-09-01 20:00] VITALS: BP 142/73
--- NOTE | 2019-09-01 21:30 | NUR ---
PATIENT MEDICATION HELD. NOTIFIED MD THAT BP LOW AT THIS TIME. MD STATES TO HOLD. MD ALSO STATES TO HOLD PO MEDS D/T NOT BEING ABLE TO SWALLOW. PATIENT AAOXO. WILL CONTINUE TO MONITOR AND CONTINUE IV MEDICATION. NO DISTRESS NOTED.
[2019-09-02] VITALS: BP 117/70
[2019-09-02] MEDS: PIPERACILLIN/TAZOBACTAM 3.375 GM in DEXTROSE 5% 50 ML IV SCH ×4 (00:12→18:25)
[2019-09-02] MEDS: MORPHINE SULFATE 2 MG/ML SYR IVP PRN ×4 (00:14→13:41)
--- NOTE | 2019-09-02 00:30 | NUR ---
PATIENT LYING IN BED NC 2L AAOX0. NO DISTRESS NOTED. LOW GRADE FEVER NOTED. TOOK EXTRA BLANKETS OFF. WILL CONTINUE TO MONITOR. PAIN MEDICATION TO BE GIVEN. SPOKE WITH MD ABOUT ELEVATED RR AND HR NOTED. INCREASED PAIN MEDICATION ORDERS. WILL CONTINUE TO MONITOR.
--- NOTE | 2019-09-02 01:54 | NUR ---
DR COLEMAN CALLED ABOUT ELEVATED HR AND ELEVATED RR. SHOWN EKG. AT BEDSIDE. STATES WILL WRITE ORDERS AT THIS TIME. WILL F/U. SANDRA BECERRA
[2019-09-02] MEDS ORDERED: LORazepam 2 MG/ML VIAL IVP PRN ×2 (02:15→05:15)
[2019-09-02] MEDS ORDERED: LORazepam 0.5 MG TAB ONE (02:20)
--- NOTE | 2019-09-02 02:24 | NUR ---
WENT TO PULL OUT ATIVAN 0.5 FOR PATIENT PER MD ORDERS FROM [employer]. WHEN LID OPENED TO PULL MED OUT, IT WAS A TABLET IN WHICH THE PATIENT IS NPO. I NEEDED IVP MEDICATION. LEFT ALL ATIVAN TABLETS IN OMNICELL AND DID NOT REMOVE ANY. TRIED TO FIX VIA [employer]. BUT WOULD NOT LET ME CANCEL FROM THAT SPECIFIC SITE. DID NOT REMOVE ANY MEDS! SANDRA BECERRA Addendum: 09/02/19 at 0231 by Anabella Mueller RN MD CANCELING OLD ORDER AND RE-EDITING A NEW ORDER. NO ORDERS VIA EMAR AT THIS TIME. WILL CONTINUE TO F/ U WITH PAIN MEDICATION. PER DR. COLEMAN.
[2019-09-02 04:00] VITALS: BP 123/68
--- NOTE | 2019-09-02 04:15 | NUR ---
PATIENT ASSESSED FOR PAIN AGAIN. CONTINUING TO REassess. pain medications given as prescribed.
[2019-09-02] MEDS: PANTOPRAZOLE 40 MG TABEC PO SCH (06:14)
[2019-09-02 06:21] LABS: BASOPHILS % (AUTO) 0.4 % (0.0-2.0); EOSINOPHILS # (AUTO) 0.1 K/uL (0-0.4); EOSINOPHILS % (AUTO) 1.1 % (0.0-4.0); HEMATOCRIT 37.1 % (36-52); HEMOGLOBIN 12.1 g/dL (12.0-18.0); LYMPHOCYTES # (AUTO) 0.5 K/uL (2.0-11.5); LYMPHOCYTES % (AUTO) 4.1 % (20.5-51.1); MEAN CORPUSCULAR HEMOGLOBIN 30 pg (27-31); MEAN CORPUSCULAR HGB CONC 33 g/dL (33-37); MONOCYTES # (AUTO) 1.1 K/uL (0.8-1.0); NEUTROPHILS # (AUTO) 9.2 K/uL (1.8-7.7); NEUTROPHILS % (AUTO) 84.4 % (42.2-75.2); PLATELET COUNT (AUTO) 223 K/uL (140-450); RED BLOOD CELL COUNT(AUTO) 4.03 MIL/uL (4.20-6.10); RED CELL DISTRIBUTION WIDTH 15.6 % (11.6-13.7); WHITE BLOOD COUNT (AUTO) 10.9 K/uL (4.8-10.8)
[2019-09-02 06:36] LABS: MAGNESIUM 1.9 mg/dL (1.8-2.4); PHOSPHORUS 3.1 mg/dL (2.5-4.9)
--- NOTE | 2019-09-02 06:40 | NUR ---
MD FIGUEROA UPDATED ON PATIENT STATUS.OUTPUT 200 URINE. MORPHINE GIVEN.
[2019-09-02 06:52] LABS: CREATININE 1.1 mg/dL (0.7-1.3); GLUCOSE 95 mg/dL (74-106); UREA NITROGEN, BLOOD 12 mg/dL (7-18)
[2019-09-02] MEDS: ALBUTEROL SULFATE/IPRATROPIU 3 ML SOL IH SCH ×3 (06:58→19:37)
[2019-09-02] MEDS: BUDESONIDE 0.5 MG/2 ML NEBU INH SCH ×2 (06:59→19:42)
--- NOTE | 2019-09-02 06:59 | NUR ---
NO HHN GIVEN DUE TO HIGH HEART RATE OF 147
[2019-09-02 07:10] LABS: ANION GAP 8.9 (8-16); CARBON DIOXIDE 32.2 mmol/L (21-32); CHLORIDE 94 mmol/L (98-107); POTASSIUM 4.1 mmol/L (3.5-5.1); SODIUM SERUM 131 mmol/L (136-145)
--- NOTE | 2019-09-02 07:38 | NUR ---
RECEIVED BEDSIDE REPORT FROM LEASE PURCHASE TRUCK DRIVER NURSE FOR CONTINUITY OF CARE. PT IS RESTING ON BED AND NON-RESPONSIVE TO VOICE. PT IS AAOX0, FLACC 0, CALM. RESPIRATION DEEP AND LABORED ON 4LPM VIA NC, SPO2 AT 95%. NO SIGNS OF DISTRESS NOTED. R U ARM PICC LINE IN PLACE, CLEAN AND INTACT, INFUSING PER MD ORDER AT THIS TIME. SKIN CLEAN AND DRY. PT IS BEDBOUND AND HENSLEY IN PLACE, DRAINING WITH GRAVITY. TELE MONITOR ATTACHED. FALL RISK PROTOCOL IN PLACE AND SIGN POSTED. SAFETY MEASURES IN PLACE. BED IN LOW POSITION AND CALL LIGHT WITHIN REACH. BED ALARM ACTIVATED.
--- NOTE | 2019-09-02 07:38 | NUR ---
PATIENT SEEN MD. NO DISTRESS NOTED. STABLE AT THIS TIME. OXYGEN 96%. REPORT AT BEDSIDE.
[2019-09-02 08:00] VITALS: BP 134/56
--- NOTE | 2019-09-02 08:30 | NUR ---
DR FIGUEROA IS TALKING TO FAMILY AT BEDSIDE. SPO2 AT 95% ON NASAL CANNULA AT THIS TIME. NO SIGNS OF DISTRESS NOTED. SAFETY MEASURES IN PLACE.
--- NOTE | 2019-09-02 08:45 | NUR ---
P.T. NOTES STILL UNABLE TO DO P.T. EVAL AT THIS TIME DUE TO PATIENT IS STILL VERY LETHARGIC.
[2019-09-02] MEDS: TAMSULOSIN 0.4 MG CAP PO SCH (09:00)
[2019-09-02] MEDS: FAMOTIDINE 20 MG TAB PO SCH (09:00)
[2019-09-02] MEDS: APIXABAN 2.5 MG TAB PO SCH ×2 (09:00→21:00)
[2019-09-02] MEDS: DOCUSATE SODIUM 100 MG GELCAP PO SCH ×2 (09:00→21:00)
[2019-09-02] MEDS: DIGOXIN 0.125 MG TAB PO SCH (09:00)
[2019-09-02] MEDS: FINASTERIDE 5 MG TAB PO SCH (09:00)
[2019-09-02] MEDS: METOPROLOL 5 MG/5 ML VIAL IV SCH ×4 (09:57→21:53)
--- NOTE | 2019-09-02 09:57 | NUR ---
ADMINISTERED METOPROLOL VIA IVP, PT TOLERATED WELL, MED ED PROVIDED TO PT AND BY BEDSIDE. PT IS KICKING HIS LEGS AND TACHYCARDIAC 145, ADMINISTERED PRN PAIN MED MORPHINE. SPO2 AT 95% AT THIS TIME. TELE MONITOR ATTACHED. SAFETY MEASURES IN PLACE. BED IN LOW POSITION AND CALL LIGHT WITHIN REACH. FALL RISK PROTOCOL IN PLACE AND BED ALARM ACTIVATED.
--- NOTE | 2019-09-02 11:40 | NUR ---
BREATHING IS LABORED AND DEEP, SPO2 95% WITH NC. FLACC 0. CALM. NO SIGNS OF DISTRESS NOTED. FAMILY BEDSIDE. TELE MONITOR ATTACHED. SAFETY MEASURES IN PLACE.
[2019-09-02 12:00] VITALS: BP 128/60
--- NOTE | 2019-09-02 12:36 | NUR ---
ADMINISTERED SCHEDULED MED ZOSYN PER MD ORDER, MED ED PROVIDED TO PT'S FAMILY AT BEDSIDE. SPO2 AT 95% AND PULSE 140. FLACC 0. NO SIGNS OF DISTRESS NOTED. TELE MONITOR ATTACHED. SAFETY MEASURES IN PLACE.
--- NOTE | 2019-09-02 13:48 | NUR ---
*S.T. NOTE* Pt continues to be obtunded and unable to participate in swallow eval. Pt w/labored breathing. Family stated they are leaving to make arrangements for pt. Will continue to hold eval.
[2019-09-02 16:00] VITALS: BP 118/54
--- NOTE | 2019-09-02 18:25 | NUR ---
ADMINISTERED SCHEDULED MEDS PER MD ORDER, MEDS ED PROVIDED TO PT AND REINFORCEMENT NEEDED. FALCC 0. SPO2 AT 95% AT THIS TIME. NO SIGNS OF DISTRESS NOTED. TELE MONITOR ATTACHED. SAFETY MEASURES IN PLACE. BED ALARM ACTIVATED.
[2019-09-02] MEDS: DEXT 5% / NACL 0.45% 1,000 ML IV SCH (18:58)
--- NOTE | 2019-09-02 19:30 | NUR ---
ENDORSED PT AT BEDSIDE TO TUBING MACHINE TENDER NURSE FOR CONTINUITY OF CARE. PT LOOKS CALM AND FLACC 0. SPO2 AT 95% ON 4LPM. NO SIGNS OF DISTRESS NOTED. TELE MONITOR ATTACHED. SAFETY MEASURES IN PLACE. BED ALARM ACTIVATED.
--- NOTE | 2019-09-02 19:32 | NUR ---
RECEIVED REPORT FROM DAYSHIFT NURSE AT PATIENTS BEDSIDE. ANOx0, DOES NOT RESPOND TO STERNAL RUB/VOICE.NONVERBAL, DOES NOT OPEN EYES, PUPILS REACTIVE BUT SLUGGISH. ON NASAL CANNULA 4LP, SATURATIONS ARE 95%. BREATHING IS LABORED, AND TACHYPNEIC, LUNG SOUNDS CRACKLES. CONNECTED TO CONTINUOUS CARDIAC MONITORING, EKG STRIP SHOWS AFIB/AFLUTTER, UNCONTROLLED, TACHYCARDIC. POSITIVE RADIAL PULSES. RIGHT UPPER ARM PICC LINE IN PLACE, INFUSING D5 1/2 NS @ 50ML/HR. NO EDEMA NOTED. SKIN WARM TO TOUCH AND DRY, AFEBRILE. ABDOMEN LARGE SOFT AND NONTENDER, BOWEL SOUNDS ARE HYPOACTIVE. HENSLEY CATHETER IN PLACE, WITH CLEAR YELLOW URINE NOTED. SAFETY ALARMS IN PLACE, SIDERAILS UP x3. WILL CONTINUE TO MONITOR.
--- NOTE | 2019-09-02 19:52 | NUR ---
RECEIVED PATIENT ON 4L NASAL CANNULA, PULSE OX SAT 95%. SCHEDULED BREATHING TREATMENTS ADMINISTERED. TOLERATED TXs WELL WITHOUT ADVERSE SIDE EFFECTS. ORAL CARE DONE POST TX. BUBBLE HUMIDIFIER ADDED TO OXYGEN FOR COMFORT. NO ACUTE RESPIRATORY DISTRESS NOTED AT THIS TIME. WILL CONTINUE TO MONITOR.
[2019-09-02 20:00] VITALS: BP 143/78
--- NOTE | 2019-09-02 21:52 | NUR ---
PATIENTS BLOOD PRESSURE READS 161/78, HEART RATE 143BPM. ADMINISTERED SCHEDULED METROPOLOL IVP. PATIENT DOES NOT RESPOND TO NAME/VOICE OR HARD STERNAL RUB. CONNECTED TO STULL HEWER. SAFETY PRECAUTIONS IN PLACE. IV FLUIDS INFUSING AT RIGHT UPPER ARM PICC LINE. WILL CONTINUE TO MONITOR.
[2019-09-03] VITALS: BP 166/84
--- NOTE | 2019-09-03 | NUR ---
BLOOD PRESSURE INCREASED TO 200'S, RECHECKED AND ADJUSTED BLOOD PRESSURE CUFF, BLOOD PRESSURE- 166/84. HEART RATE CONTINUES OVER 130 BPM WITH AFIB/AFLUTTER-UNCONTROLLED. CONTINUE TO MONITOR BLOOD PRESSURE, DOWN TO 138/68 AND PATIENT STARTING TO DESAT TO 80's, INCREASED NASAL CANNULA TO 6L. PATIENT TAKING LONG GASPS FOR AIR. WILL MAKE RT AWARE.
--- NOTE | 2019-09-03 00:20 | NUR ---
PATIENT WILL TAKE DEEP BREATHS IN AND SATURATIONS WILL GO BACK TO 90%, BUT SHORTLY AFTER WILL DROP BACK DOWN TO 85-88%.
[2019-09-03] MEDS: PIPERACILLIN/TAZOBACTAM 3.375 GM in DEXTROSE 5% 50 ML IV SCH (01:05)
--- NOTE | 2019-09-03 01:15 | NUR ---
CALLED RT TO MAKE AWARE OF PATIENT DESATTING TO LOW 80's. INCREASED NASAL CANNULA TO 6LPM AND SATURATIONS WILL INCREASE BUT GO BACK DOWN TO LOW 80's. PATIENT IS GASPING FOR AIR WITH "GUPPY BREATHING" NOT COMPLETELY INSPIRING. RT WILL COME TO BEDSIDE.
--- NOTE | 2019-09-03 01:20 | NUR ---
CALLED BY RN TO ASSESS PATIENT DUE TO DESATURATION. PATIENT SATURATING 80-85% ON 6LPM NASAL CANNULA. PATIENT PRESENTS WITH AGONAL BREATHING. RESIDENT MD CALLED TO BEDSIDE. PER MD LEAVE PATIENT AT 2LPM NASAL CANNULA. WILL CONTINUE TO MONITOR CLOSELY.
--- NOTE | 2019-09-03 01:21 | NUR ---
RESIDENT MD AWARE PATIENTS BLOOD PRESSURE BECAME SEVERELY HIGH TO 200'S AND GRADUALLY DECREASED TO 120'S. HEART STILL ELEVATED, PATIENT CONTINUE TO DESAT AND TEMPERATURE INCREASING. PATIENT IS WARM TO TOUCH. RESIDENT MD IN TO ASSESS PATIENT, ORDERS FOR MORPHINE IVP. JAVED CALLED FOR UPDATE, WILL COME IN TO SEE PATIENT.
[2019-09-03] MEDS: MORPHINE SULFATE 2 MG/ML SYR IVP PRN (01:29)
--- NOTE | 2019-09-03 02:00 | NUR ---
PATIENTS AND SISTER IN LAW IN TO SEE PATIENT. MADE RESIDENT MD AWARE AND FAMILY IS ASKING IF PATIENT . RESIDENT MD TO BEDSIDE TO ANSWER ALL QUESTIONS AND TO ASSESS PATIENT. ALL MONITORS CONNECTED, PULSE OX, PAPER BALER, AND BLOOD PRESSURE CUFF. PATIENTS HEART RATE IN 40'S AND BLOOD PRESSURE SBP IN 40'S. HEART RATE SHOWING SKIPPED BEATS. OXYGEN SATURATIONS SHOW NO READING TO 40%. PUPILS NONREACTIVE, FIXED AND DILATED. NO PULSES PALPATED, NO LUNG SOUNDS OR HEART SOUNDS HEARD. RESIDENT MD CALLED TIME OF 0203.
--- NOTE | 2019-09-03 02:25 | NUR ---
PATIENTS , SON, AND SISTER IN LAW AT BEDSIDE. TRANSFERRED ROOMMATE (BED 121 B) TO OTHER ROOM FOR FAMILY PRIVACY.
--- NOTE | 2019-09-03 03:38 | NUR ---
SPOKE WITH LAURA FOR CORONERS CASE REPORT. CASE # [id number], CASE DECLINED.
--- NOTE | 2019-09-03 03:49 | NUR ---
SPOKE WITH GIOVANNY FROM [facility], ANSWERED ALL QUESTIONS. PATIENT HAS AN ADVANCED DIRECTIVE WITH AGREEMENTS OF RELEASING ORGAN/TISSUE DONATION. [facility] WILL FOLLOWUP WITH JAVED-.
--- NOTE | 2019-09-03 04:18 | NUR ---
RECEIVED CALL FROM GIOVANNY FROM [facility], CONFIRMED PATIENT IS OK TO BE RELEASED.
--- NOTE | 2019-09-03 04:22 | NUR ---
MADE CALL TO [facility] TO REPORT PATIENT CASE. CONFIRMED WILL BE HERE FOR PICKUP IN ONE HOUR. [facility]- [phone] APPRAISAL SPECIALIST's MADE AWARE TO START POST MORTEM CARE, WILL CARRY OUT.
--- NOTE | 2019-09-03 05:40 | NUR ---
POST MORTEM CARE COMPLETE, D/C HENSLEY CATHETER AND REMOVED ALL IV LINES AND MANAGER OF WAREHOUSE.
== END 2019-09-03 02:03 | disposition expired | DRG 871 ==
LOC: MED 18:20 → MTU 21:56
PROVIDERS: ADMIT General Practice; ATTEND General Practice
PROC: 02HV33Z Insertion of Infusion Device into Superior Vena Cava, Percutaneous Approach (ICD-10-PCS; principal; 2019-08-31)
PROC: B548ZZA Ultrasonography of Superior Vena Cava, Guidance (ICD-10-PCS; 2019-08-31)
DX: A41.9 Sepsis, unspecified organism (principal); J69.0 Pneumonitis due to inhalation of food and vomit; E43 Unspecified severe protein-calorie malnutrition; G93.41 Metabolic encephalopathy; J96.21 Acute and chronic respiratory failure with hypoxia; N39.0 Urinary tract infection, site not specified; C34.90 Malignant neoplasm of unspecified part of unspecified bronchus or lung; N13.8 Other obstructive and reflux uropathy; E87.1 Hypo-osmolality and hyponatremia; C79.31 Secondary malignant neoplasm of brain; E83.42 Hypomagnesemia; I10 Essential (primary) hypertension; I48.91 Unspecified atrial fibrillation; J43.9 Emphysema, unspecified; N40.1 Benign prostatic hyperplasia with lower urinary tract symptoms; R65.20 Severe sepsis without septic shock; Z92.21 Personal history of antineoplastic chemotherapy; F32.9 Major depressive disorder, single episode, unspecified; K21.9 Gastro-esophageal reflux disease without esophagitis; I73.9 Peripheral vascular disease, unspecified; E87.6 Hypokalemia; Z68.22 Body mass index [BMI] 22.0-22.9, adult; R13.10 Dysphagia, unspecified; I46.9 Cardiac arrest, cause unspecified
CPT/HCPCS: 36415; 70460; 71045; 71260; 80048; 80053; 81001; 83036; 83605; 83735; 83880; 84100; 84443; 84484; 85025; 85610; 85730; 87040; 87081; 87086; 93005; 94640; 96365; 99285; C1751; J2270; J2405; J2543; J3475; J3480; J3490; J7060; J7620; J7626; Q0092; Q9967